=== PATIENT | male | born 1970 | race Caucasian/White ===

== ENCOUNTER 2017-11-23 10:12 | Emergency (ER) | payer SELFPAY ==
--- NOTE | 2017-11-23 10:29 | ER Document Report ---
ED Medical Screen (RME) - General Chief Complaint: Abdominal Pain Stated Complaint: ABDOMINAL PAIN/AROUND BELLY BUTTON Time Seen by Provider: 11/23/17 10:25 Notes: 47-year-old male patient with an umbilical hernia. He has had this for quite some time. 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 It is not particular painful unless he tries to push it back in. There are no other symptoms associated. I have greeted and performed a rapid initial assessment of this patient. A comprehensive ED assessment and evaluation of the patient, analysis of test results and completion of the medical decision making process will be conducted by additional ED providers. TRAVEL OUTSIDE OF THE [place] IN LAST 30 DAYS: No - Related Data Allergies/Adverse Reactions: ibuprofen Adverse Reaction (Verified 03/12/16 09:02) Past Medical History - Social History Chew tobacco use (# tins/day): No Frequency of alcohol use: None Drug Abuse: None - Past Medical History Cardiac Medical History: Reports: Hx Hypertension Pulmonary Medical History: Denies: Hx Asthma, Hx Bronchitis Endocrine Medical History: Reports: Hx Diabetes Mellitus Type 2 Renal/ Medical History: Denies: Hx Peritoneal Dialysis - Immunizations Hx Diphtheria, Pertussis, Tetanus Vaccination: Yes Physical Exam - Vital signs Vitals: Temp Pulse Resp BP Pulse Ox 98.1 F 112 H 18 149/89 H 98 11/23/17 10:21 11/23/17 10:21 11/23/17 10:21 11/23/17 10:11/23/17 10:21 Course - Vital Signs Vital signs: Temp Pulse Resp BP Pulse Ox 98.1 F 112 H 18 149/89 H 98 11/23/17 10:21 11/23/17 10:21 11/23/17 10:21 11/23/17 10:11/23/17 10:21
--- NOTE | 2017-11-23 10:52 | ER Document Report ---
ED GI/ - General Chief Complaint: Abdominal Pain Stated Complaint: ABDOMINAL PAIN/AROUND BELLY BUTTON Time Seen by Provider: 11/23/17 10:25 Mode of Arrival: Ambulatory Information source: Patient TRAVEL OUTSIDE OF THE [place] IN LAST 30 DAYS: No - HPI Patient complains to provider of: Abdominal pain Notes: 11/23/17 11:02 47-year-old gentleman with no significant past medical history who presented today for evaluation of abdominal hernia. Patient reported that he had a hernia for couple of months now after lifting heavy objects. 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 He has abdominal hernia feels firm now, localized to the umbilical area, no pain, no vomiting, no chest pain or shortness of breath. - Related Data Allergies/Adverse Reactions: ibuprofen Adverse Reaction (Verified 03/12/16 09:02) Past Medical History - Social History Smoking Status: Current Every Day Smoker Chew tobacco use (# tins/day): No Frequency of alcohol use: None Drug Abuse: None Family History: Reviewed & Not Pertinent, Other - colon cancer in aunt Patient has suicidal ideation: No Patient has homicidal ideation: No - Past Medical History Cardiac Medical History: Reports: Hx Hypertension Pulmonary Medical History: Denies: Hx Asthma, Hx Bronchitis Endocrine Medical History: Reports: Hx Diabetes Mellitus Type 2 Renal/ Medical History: Denies: Hx Peritoneal Dialysis - Immunizations Hx Diphtheria, Pertussis, Tetanus Vaccination: Yes Review of Systems - Review of Systems Notes: REVIEW OF SYSTEMS: CONSTITUTIONAL: -fevers, -chills EENT: -eye pain, -difficulty swallowing, -nasal congestion CARDIOVASCULAR: -chest pain, -syncope. RESPIRATORY: -cough, -SOB GASTROINTESTINAL: -abdominal pain, -nausea, -vomiting, -diarrhea GENITOURINARY: -dysuria, -hematuria MUSCULOSKELETAL: -back pain, -neck pain SKIN: -rash or skin lesions. HEMATOLOGIC: -easy bruising or bleeding. LYMPHATIC: -swollen, enlarged glands. NEUROLOGICAL: -altered mental status or loss of consciousness, -headache, - neurologic symptoms PSYCHIATRIC: -anxiety, -depression. ALL OTHER SYSTEMS REVIEWED AND NEGATIVE. Physical Exam - Vital signs Vitals: Temp Pulse Resp BP Pulse Ox 98.1 F 112 H 18 149/89 H 98 11/23/17 10:21 11/23/17 10:21 11/23/17 10:21 11/23/17 10:21 11/23/17 10:21 - Notes Notes: Reviewed vital signs and nursing note as charted by RN. CONSTITUTIONAL: Alert and oriented and responds appropriately to questions HEAD: Normocephalic; atraumatic EYES: PERRL ENT: normal nose; no rhinorrhea; moist mucous membranes; pharynx without lesions noted NECK: Supple CARD: Regular rate and rhythm; no murmurs, no clicks, no rubs, no gallops; symmetric distal pulses RESP: Normal chest excursion without splinting or tachypnea; breath sounds clear and equal bilaterally ABD/GI: Normal bowel sounds; non-distended; soft, patient has abdominal umbilical hernia measuring approximately 5 cm in size, no ischemia or necrosis of the skin, hernia felt firm but reducible with manual pressure BACK: The back appears normal and is non-tender to palpation EXT: Normal ROM in all joints; non-tender to palpation; no cyanosis, no effusions, no edema SKIN: Normal color for age and race; NEURO: Cranial nerves 3-12 intact. Motor strength 5/5 bilaterally. Sensation intact to touch bilaterally. No pronator drift. Finger to nose intact bilaterally PSYCH: The patient's mood and manner are appropriate Course - Re-evaluation Re-evalutation: 11/23/17 11:04 47-year-old male here with umbilical hernia Patient does not have any severe abdominal pain, no vomiting or any nausea I was able to reduce the hernia with gentle manual pressure with improvement of his hernia size as well as firmness of the hernia Discussed the patient is to obtain an abdominal binder and follow-up with general surgery for possible surgical evaluation and treatment Patient agree with the plan - Vital Signs Vital signs: Temp Pulse Resp BP Pulse Ox 98.1 F 112 H 18 149/89 H 98 11/23/17 10:21 11/23/17 10:21 11/23/17 10:21 11/23/17 10:21 11/23/17 10:21 Discharge - Discharge Clinical Impression: Umbilical hernia without mention of obstruction or gangrene Condition: Stable Disposition: HOME, SELF-CARE Additional Instructions: You have been diagnosed with umbilical hernia, please make sure to observe your symptoms at home. You will benefit from abdominal binder, please avoid lifting heavy things Please follow-up with general surgeon for further discussion and options of treatment of your hernia including possible surgery Please come back immediately to emergency room if you have worsening nausea, vomiting, chest pain or shortness of breath, worsening abdominal pain or skin changes of your hernia Referrals: [facility] [Primary Care Provider] - Follow up as needed BRYANT KENT MD [PASSENGER INTERLINE CLERK] - Follow up in 3-5 days
[2017-11-23 11:31] VITALS: BP 140/94
== END 2017-11-23 11:30 | disposition home or self-care (01) ==
LOC: ER 10:12
DX: K42.9 Umbilical hernia without obstruction or gangrene (principal); X50.0XXA Overexertion from strenuous movement or load, initial encounter; F17.200 Nicotine dependence, unspecified, uncomplicated; E11.9 Type 2 diabetes mellitus without complications; I10 Essential (primary) hypertension
CPT/HCPCS: 99283